=== PATIENT | female | born 1990 | race Hispanic/Latino ===

== ENCOUNTER 2020-10-28 17:43 | Emergency (ER) | payer OTHER ==
--- OUTSIDE RECORDS SUMMARY | 2020-10-28 17:45 | XMS REPORT | Continuity of Care Document ---
:1990 Author Organization [facility] t Address [address] [place] [address] Care Team Providers Name Role Phone Unavailable Unavailable Unavailable Payers Payer Name Policy Type Policy Number Effective Date Expiration Date S ource Problems This patient has no known problems. Allergies, Adverse Reactions, Alerts Allergy Allergy Status Severity Reaction(s) Onset Inactive Treating Comm ents Source Name Type Date Date Clinician No Known DA Active U 2017-0 [facility] 1-15 [facility] 00:00: e 00 [facility] Medications This patient has no known medications. Procedures This patient has no known procedures. Results Test Description Test Time Test Comments Results Result Comments Source COVID 19 INHOUSE AG 2020-10-14 17:38:00 Test Item Value Reference Range Interpretation Comme nts COVID 19 INHOUSE AG (test code = [id number]) NEGATIVE Novel Coronavirus 2019 [id number] 20:40:00 Test Item Value Reference Range Interpretation Comments Novel Coronavirus 2019 nCoV (test Negative Negative code = COVID19) Does patient have the clinical criteria consistent with COVID-19? YIs the patient going to be discharged home? YSTREPTOCOCCUS PCR [id number] 08:25:00 Test Item Value Reference Range Interpretation Comments STREPTOCOCCUS DYSGALACTIAE NEGATIVE FOR G/C NEGATIVE (test code = STREPGC) STREPA MOLECULAR (test NEGATIVE FOR GRP A NEGATIVE code = STREPAMOL)
[2020-10-28 18:34] LABS: Urine Blood 2+ (NEG); Urine Glucose NEGATIVE (NEG); Urine Protein TRACE (NEG); Urine Specific Gravity >1.030 (1.005-1.030)
--- NOTE | 2020-10-28 19:34 | EDPHYS ---
Physician Documentation [facility] Name: Martha García Age: 30 yrs Sex: Female : 1990 Arrival Date: 10/28/2020 Time: 17:50 Bed 28 Private MD: ED Physician Mikey Pop HPI: 10/28 19:35 This 30 yrs old Female presents to ER via Ambulatory with complaints of kb Vaginal Bleeding, + Preg <12wks. 19:35 The patient presents to the emergency department with vaginal bleeding, that is kb moderate. course: care: none, Leakage of Fluid: none appreciated, Ultrasound: the patient has not had an ultrasound, Risk/complications: no obvious risks or complications are appreciated. Previous pregnancies: in previous pregnancies patient has had. Associated signs and symptoms: Pertinent positives: vaginal bleeding. The patient has not experienced similar symptoms in the past. The patient has not recently seen a physician. Pt reports she took 2 tests a week ago and they were both positive. Today started having vaginal bleeding. This would be the time for her normal cycle so she isn't sure if that is all it is. . 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 - Social history:: Smoking status: . ROS: 19:35 Constitutional: Negative for fever, chills, and weight loss, Cardiovascular: Negative kb for chest pain, palpitations, and edema, Respiratory: Negative for shortness of breath, cough, wheezing, and pleuritic chest pain, Abdomen/GI: Negative for abdominal pain, nausea, vomiting, diarrhea, and constipation, Back: Negative for injury and pain, MS/Extremity: Negative for injury and deformity, Skin: Negative for injury, rash, and discoloration, Neuro: Negative for headache, weakness, numbness, tingling, and seizure. 19:35 : Positive for vaginal bleeding. Exam: 19:35 Constitutional: This is a well developed, well nourished patient who is awake, alert, kb and in no acute distress. Head/Face: Normocephalic, atraumatic. Chest/axilla: Normal chest wall appearance and motion. Nontender with no deformity. No lesions are appreciated. Cardiovascular: Regular rate and rhythm with a normal S1 and S2. No gallops, murmurs, or rubs. Normal PMI, no JVD. No pulse deficits. Respiratory: Lungs have equal breath sounds bilaterally, clear to auscultation and percussion. No rales, rhonchi or wheezes noted. No increased work of breathing, no retractions or nasal flaring. Abdomen/GI: Soft, non-tender, with normal bowel sounds. No distension or tympany. No guarding or rebound. No evidence of tenderness throughout. Skin: Warm, dry with normal turgor. Normal color with no rashes, no lesions, and no evidence of cellulitis. MS/ Extremity: Pulses equal, no cyanosis. Neurovascular intact. Full, normal range of motion. Neuro: Awake and alert, GCS 15, oriented to person, place, time, and situation. Cranial nerves II-XII grossly intact. Motor strength 5/5 in all extremities. Sensory grossly intact. Cerebellar exam normal. Normal gait. Vital Signs: 17:53 BP 140 / 93; Pulse 91; Resp 18; Temp 98(TE); Pulse Ox 100% on R/A; Weight 98.43 kg (R); tw2 Height 5 ft. 4 in. (162.56 cm); Pain 7/10; 17:53 Body Mass Index 37.25 (98.43 kg, 162.56 cm) tw2 MDM: 19:33 Patient medically screened. kb 19:35 Data reviewed: vital signs, nurses notes. Data interpreted: Pulse oximetry: on room air kb is 100 %. Interpretation: normal. Counseling: I had a detailed discussion with the patient and/or guardian regarding: the historical points, exam findings, and any diagnostic results supporting the discharge/admit diagnosis, lab results, the need for outpatient follow up, an OB/Gyne specialist, to return to the emergency department if symptoms worsen or persist or if there are any questions or concerns that arise at home. 10/28 18:22 Order name: Urine Dipstick--Ancillary (enter results); Complete Time: 18:49 bd 10/28 18:22 Order name: Urine --Ancillary (enter results); Complete Time: 18:49 bd 10/28 17:52 Order name: Urine Test (obtain specimen); Complete Time: 19:42 kb 10/28 17:52 Order name: Urine Dipstick-Ancillary (obtain specimen); Complete Time: 19:42 kb Administered Medications: No medications were administered Point of Care Testing: Urine : 19:42 hCG Reading: Negative; Control Reading: Negative; iw Disposition: 10/29 04:02 Co-signature as Attending Physician, Mikey Pop MD did not see or evaluate patient. ps1 Signature for administrative purposes. . Disposition: 10/28/20 19:33 Discharged to Home. Impression: Encounter for test. - Condition is Stable. - Medication Reconciliation Form, Thank You Letter, Antibiotic Education, Prescription Opioid Use form. - Follow up: Emergency Department; When: As needed; Reason: Worsening of condition. Follow up: Private Physician; When: 2 - 3 days; Reason: Recheck today's complaints, Continuance of care, Re-evaluation by your physician. Signatures: Dispatcher [employer] EDMS Anabella Almodovar, SPECIAL EVENTS COORDINATOR-C SPECIAL EVENTS COORDINATOR-CkLucina Moran RN RN iw Mary Cole RN RN tw2 Mikey Pop MD MD ps1 Corrections: (The following items were deleted from the chart) 10/28 19:41 19:33 10/28/2020 19:33 Discharged to Home. Impression: Encounter for test. iw Condition is Stable. Forms are Medication Reconciliation Form, Thank You Letter, Antibiotic Education, Prescription Opioid Use. Follow up: Emergency Department; When: As needed; Reason: Worsening of condition. Follow up: Private Physician; When: 2 - 3 days; Reason: Recheck today's complaints, Continuance of care, Re-evaluation by your physician. kb
--- NOTE | 2020-10-28 19:34 | ER ---
Nurse's Notes [facility] Name: Martha García Age: 30 yrs Sex: Female : 1990 Arrival Date: 10/28/2020 Time: 17:50 Bed 28 Private MD: Diagnosis: Encounter for test Presentation: 10/28 17:53 Chief complaint: Patient states: sep 29 was my last period, we took a home tw2 test and it was positive, so now i felt wet and there was blood, i stayed at work, i am having some cramping too, i dont know if it is my period or what. Coronavirus screen: At this time, the client does not indicate any symptoms associated with coronavirus-19. Ebola Screen: Patient denies travel to an Ebola-affected area in the 21 days before illness onset. Initial Sepsis Screen: Does the patient meet any 2 criteria? No. Patient's initial sepsis screen is negative. Does the patient have a suspected source of infection? No. Patient's initial sepsis screen is negative. Risk Assessment: Do you want to hurt yourself or someone else? Patient reports no desire to harm self or others. Onset of symptoms was October 28, 2020. 17:53 Method Of Arrival: Ambulatory tw2 17:53 Acuity: JOSSY 3 tw2 Triage Assessment: 17:53 General: Appears in no apparent distress. obese, Behavior is calm, cooperative, tw2 appropriate for age. Pain: Complains of pain in pelvis. GI: Reports cramping. : Reports vaginal bleeding that is bright red. 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 - Social history:: Smoking status: . Screenin:41 Abuse screen: Denies threats or abuse. Denies injuries from another. Nutritional iw screening: No deficits noted. Tuberculosis screening: No symptoms or risk factors identified. Fall Risk None identified. Assessment: 19:30 Obstetrical Assessment: General assessment: awake and alert. General: Appears in no iw apparent distress. comfortable. Pain: Denies pain. Neuro: Level of Consciousness is awake, alert, obeys commands, Oriented to person, place, time, situation, Moves all extremities. Full function. Cardiovascular: Patient's skin is warm and dry. Respiratory: Respiratory effort is even, unlabored, Respiratory pattern is regular, symmetrical. Derm: Skin is intact, is healthy with good turgor. Musculoskeletal: Range of motion: intact in all extremities. Vital Signs: 17:53 BP 140 / 93; Pulse 91; Resp 18; Temp 98(TE); Pulse Ox 100% on R/A; Weight 98.43 kg (R); tw2 Height 5 ft. 4 in. (162.56 cm); Pain 7/10; 17:53 Body Mass Index 37.25 (98.43 kg, 162.56 cm) tw2 Vitals: 19:41 Heart Tones N/A. iw ED Course: 17:50 Patient arrived in ED. mr 17:55 Triage completed. tw2 17:56 Arm band placed on. tw2 19:33 Anabella Almodovar FNP-C [facility]. kb 19:33 Mikey Pop MD is Attending Physician. kb 19:34 Farhan Ramos, ANDREAS is Primary Nurse. mg2 19:41 Patient has correct armband on for positive identification. iw 19:41 No provider procedures requiring assistance completed. Patient did not have IV access iw during this emergency room visit. Administered Medications: No medications were administered Point of Care Testing: Urine : 19:42 hCG Reading: Negative; Control Reading: Negative; iw Outcome: 19:33 Discharge ordered by . kb 19:41 Discharged to home ambulatory. iw 19:41 Condition: good 19:41 Discharge instructions given to patient, Instructed on discharge instructions, follow up and referral plans. Demonstrated understanding of instructions, follow-up care. 19:41 Patient left the ED. iw Signatures: Anabella Almodovar FNP-C FNP-Meño GodfreyTamara Lucina Wellington, RN RN iw Mary Cole RN RN tw2 Farhan Ramos RN RN mg2
[2020-10-28 19:59] VITALS: BP 140/93; TEMP 98; O2SAT 100
== END 2020-10-28 19:41 | disposition home or self-care (01) ==
LOC: ER 17:43
DX: Z32.02 Encounter for pregnancy test, result negative (principal); Z98.84 Bariatric surgery status
CPT/HCPCS: 81003; 81025; 99283

== ENCOUNTER 2021-01-25 21:19 | Emergency (ER) | payer OTHER ==
--- OUTSIDE RECORDS SUMMARY | 2021-01-25 21:22 | XMS REPORT | Continuity of Care Document ---
:1990 Author Organization [facility] t Address [address] [place] [address] Care Team Providers Name Role Phone Lolly Palacios Attending Clinician [phone] Payers Payer Name Policy Type Policy Number Effective Date Expiration Date S ource Problems This patient has no known problems. Allergies, Adverse Reactions, Alerts Allergy Allergy Status Severity Reaction(s) Onset Inactive Treating Comm ents Source Name Type Date Date Clinician No Known DA Active U 2017-0 [facility] 1[facility] e 00 [facility] Medications This patient has no known medications. Procedures This patient has no known procedures. Encounters Start End Encounter Admission Attending Care Care Encounter Source Date/Time Date/Time Type Type Clinicians Facility Department ID 2021-01-23 2021-01-23 Telephone BRENNAN Draper [id number] 00:00:00 00:00:00 Lolly Natarajan D[employer] SHEETER [id number] REGIONAL [id number] MATERNAL [id number] & CHILD [address] [place] [address] Results Test Description Test Time Test Comments Results Result Comments Source COVID 19 INHOUSE AG 2020-10-14 17:38:00 Test Item Value Reference Range Interpretation Comme nts COVID 19 INHOUSE AG (test code = [id number]) NEGATIVE Novel Coronavirus 2018 [id number] 20:40:00 Test Item Value Reference Range Interpretation Comments Novel Coronavirus 2019 nCoV (test Negative Negative code = COVID19) Does patient have the clinical criteria consistent with COVID-19? YIs the patient going to be discharged home? YSTREPTOCOCCUS PCR [id number] 08:25:00 Test Item Value Reference Range Interpretation Comments STREPTOCOCCUS DYSGALACTIAE NEGATIVE FOR G/C NEGATIVE (test code = STREPGC) STREPA MOLECULAR (test NEGATIVE FOR GRP A NEGATIVE code = STREPAMOL)
[2021-01-26 02:07] LABS: Urine Blood Negative (Negative); Urine Glucose Negative (Negative); Urine Protein Negative (Negative); Urine Specific Gravity >=1.030 (1.005-1.030)
[2021-01-26 02:35] LABS: Urine Specific Gravity/Preg >1.030 (1.005-1.030)
[2021-01-26 02:51] LABS: Absolute Lymphocytes (CBC) 2.6 K/uL (0.7-4.9); Basophils % 0.6 % (0-1.3); Hematocrit 31.8 % (36.0-45.0); Lymphocytes % 40.5 % (15.3-44.8); MPV 8.2 fL (7.6-11.3)
[2021-01-26 03:00] LABS: BUN Blood Urea Nitrogen 12 mg/dL (7-18); Bicarbonate 26 mmol/L (21-32); Glucose Level 80 mg/dL (74-106); Potassium 3.5 mmol/L (3.5-5.1); Sodium Level 142 mmol/L (136-145)
[2021-01-26 03:16] LABS: HCG, Quantitative 1256 mIU/mL (1-3)
--- NOTE | 2021-01-26 03:48 | EDPHYS ---
Physician Documentation [facility] Name: Martha García Age: 30 yrs Sex: Female : 1990 Arrival Date: 01/25/2021 Time: 21:22 Bed 8 Private MD: ED Physician Gabe Og HPI: 01/26 03:42 This 30 yrs old Female presents to ER via Ambulatory with complaints of mh7 Vaginal Bleeding, + Preg <12wks. 03:42 The patient presents to the emergency department with vaginal bleeding, that is mh7 moderate, with no clots. course: care: private OB physician, Leakage of Fluid: none appreciated, Ultrasound: the patient has not had an ultrasound, Risk/complications: no obvious risks or complications are appreciated. Previous pregnancies: in previous pregnancies patient has had. Associated signs and symptoms: Pertinent positives: vaginal bleeding, Pertinent negatives: abdominal pain, chest pain, diarrhea, dysuria, fever, frequency, nausea, ruptured membranes, seizure, shortness of breath, vaginal discharge, vomiting. 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 - Social history:: Smoking status: Patient denies any tobacco usage or history of. ROS: 01/26 03:42 Constitutional: Negative for fever, chills, and weight loss, Eyes: Negative for injury, mh7 pain, redness, and discharge, ENT: Negative for injury, pain, and discharge, Neck: Negative for injury, pain, and swelling, Cardiovascular: Negative for chest pain, palpitations, and edema, Respiratory: Negative for shortness of breath, cough, wheezing, and pleuritic chest pain, Abdomen/GI: Negative for abdominal pain, nausea, vomiting, diarrhea, and constipation, Back: Negative for injury and pain, MS/Extremity: Negative for injury and deformity, Skin: Negative for injury, rash, and discoloration, Neuro: Negative for headache, weakness, numbness, tingling, and seizure, Psych: Negative for depression, anxiety, suicide ideation, homicidal ideation, and hallucinations, Allergy/Immunology: Negative for hives, rash, and allergies, Endocrine: Negative for neck swelling, polydipsia, polyuria, polyphagia, and marked weight changes, Hematologic/Lymphatic: Negative for swollen nodes, abnormal bleeding, and unusual bruising. Exam: 03:42 Constitutional: This is a well developed, well nourished patient who is awake, alert, mh7 and in no acute distress. Head/Face: Normocephalic, atraumatic. Eyes: Pupils equal round and reactive to light, extra-ocular motions intact. Lids and lashes normal. Conjunctiva and sclera are non-icteric and not injected. Cornea within normal limits. Periorbital areas with no swelling, redness, or edema. Neck: Trachea midline, no thyromegaly or masses palpated, and no cervical lymphadenopathy. Supple, full range of motion without nuchal rigidity, or vertebral point tenderness. No Meningismus. Chest/axilla: Normal chest wall appearance and motion. Nontender with no deformity. No lesions are appreciated. Cardiovascular: Regular rate and rhythm with a normal S1 and S2. No gallops, murmurs, or rubs. Normal PMI, no JVD. No pulse deficits. Respiratory: Lungs have equal breath sounds bilaterally, clear to auscultation and percussion. No rales, rhonchi or wheezes noted. No increased work of breathing, no retractions or nasal flaring. Abdomen/GI: Soft, non-tender, with normal bowel sounds. No distension or tympany. No guarding or rebound. No evidence of tenderness throughout. Back: No spinal tenderness. No costovertebral tenderness. Full range of motion. Skin: Warm, dry with normal turgor. Normal color with no rashes, no lesions, and no evidence of cellulitis. MS/ Extremity: Pulses equal, no cyanosis. Neurovascular intact. Full, normal range of motion. Neuro: Awake and alert, GCS 15, oriented to person, place, time, and situation. Cranial nerves II-XII grossly intact. Motor strength 5/5 in all extremities. Sensory grossly intact. Cerebellar exam normal. Normal gait. Psych: Awake, alert, with orientation to person, place and time. Behavior, mood, and affect are within normal limits. 03:42 : Pelvic Exam: The exam is refused by the patient/guardian. The risks and consequences are understood by the patient. Vital Signs: 01/25 23:06 BP 104 / 70; Pulse 91; Resp 16 S; Temp 97.7(O); Pulse Ox 100% on R/A; Weight 91.17 kg bb (R); Height 5 ft. 3 in. (160.02 cm) (R); Pain 5/10; 01/26 03:57 BP 132 / 90; Pulse 88; Resp 18; Temp 98; Pulse Ox 100% on R/A; mg2 01/25 23:06 Body Mass Index 35.61 (91.17 kg, 160.02 cm) bb MDM: 03:46 Differential diagnosis: threatened Ab, inevitable Ab, complete Ab, retained Ab, septic mh7 Ab, missed Ab. Data reviewed: vital signs, nurses notes, lab test result(s), Beta HCG: CBC, electrolytes, urinalysis, radiologic studies, ultrasound. Data interpreted: Pulse oximetry: on room air is 100 %. Interpretation: normal. Counseling: I had a detailed discussion with the patient and/or guardian regarding: the historical points, exam findings, and any diagnostic results supporting the discharge/admit diagnosis, lab results, radiology results, the need for outpatient follow up, an OB/Gyne specialist. Response to treatment: the patient's symptoms have markedly improved after treatment. 03:48 Patient medically screened. 7 01/26 01:52 Order name: Basic Metabolic Panel; Complete Time: 03: mg2 01/26 01:52 Order name: CBC with Diff; Complete Time: 03: mg2 01/26 01:52 Order name: Beta hcg; Complete Time: 03: mg2 01/26 02:07 Order name: Urine Dipstick-Ancillary EDMS 01/26 02:28 Order name: Urine --Ancillary (enter results); Complete Time: 03: tt3 01/26 01:52 Order name: IV Saline Lock; Complete Time: 02: mg2 01/26 01:52 Order name: Labs collected and sent; Complete Time: 02: mg2 01/26 01:52 Order name: NPO; Complete Time: 02: mg2 01/26 01:52 Order name: Urine Dipstick-Ancillary (obtain specimen); Complete Time: 02:08 mg2 01/26 02:09 Order name: Transvaginal OB US mg2 Administered Medications: No medications were administered Disposition: 01/26/21 03:48 Discharged to Home. Impression: Threatened . - Condition is Stable. - Discharge Instructions: Threatened Miscarriage, Qggy-oh-Ieza. - Medication Reconciliation Form, Thank You Letter, Antibiotic Education, Prescription Opioid Use form. - Follow up: Private Physician; When: 1 - 2 days; Reason: Worsening of condition, Recheck today's complaints, Continuance of care, Re-evaluation by your physician. - Problem is an ongoing problem. - Symptoms have improved. Signatures: Dispatcher [employer] EDMS Barbara Ware RN RN bb Farhan Ramos RN RN mg2 Gabe Og MD MD mh7 Corrections: (The following items were deleted from the chart) 03:58 03:48 01/26/2021 03:48 Discharged to Home. Impression: Threatened . Condition mg2 is Stable. Forms are Medication Reconciliation Form, Thank You Letter, Antibiotic Education, Prescription Opioid Use. Follow up: Private Physician; When: 1 - 2 days; Reason: Worsening of condition, Recheck today's complaints, Continuance of care, Re-evaluation by your physician. Problem is an ongoing problem. Symptoms have improved. mh7
--- NOTE | 2021-01-26 03:48 | ER ---
Nurse's Notes [facility] Name: Martha García Age: 30 yrs Sex: Female : 1990 Arrival Date: 01/25/2021 Time: 21:22 Bed 8 Private MD: Diagnosis: Threatened Presentation: 01/25 23:06 Chief complaint: Patient states: she is having vaginal bleeding and abdominal cramping bb she is 5 weeks . Coronavirus screen: At this time, the client does not indicate any symptoms associated with coronavirus-19. Ebola Screen: No symptoms or risks identified at this time. Initial Sepsis Screen: Does the patient meet any 2 criteria? No. Patient's initial sepsis screen is negative. Does the patient have a suspected source of infection? No. Patient's initial sepsis screen is negative. Risk Assessment: Do you want to hurt yourself or someone else? Patient reports no desire to harm self or others. Onset of symptoms is unknown. 23:06 Method Of Arrival: Ambulatory bb 23:06 Acuity: JOSSY 3 bb Triage Assessment: 23:07 General: Appears in no apparent distress. Behavior is calm, cooperative. Pain: bb Complains of pain in abdomen Pain currently is 5 out of 10 on a pain scale. Cardiovascular: No deficits noted. Respiratory: Respiratory effort is even, unlabored, Respiratory pattern is regular. : Reports vaginal bleeding that is. Derm: Skin is pink, warm \T\ dry. Musculoskeletal: Circulation, motion, and sensation intact. 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 - Social history:: Smoking status: Patient denies any tobacco usage or history of. Screenin/25 02:10 Abuse screen: Denies threats or abuse. Denies injuries from another. Nutritional mg2 screening: No deficits noted. Tuberculosis screening: No symptoms or risk factors identified. Fall Risk IV access (20 points). Assessment: 02:09 General: Appears in no apparent distress. comfortable, Behavior is calm, cooperative. mg2 Pain: Complains of pain in abdomen. Neuro: Level of Consciousness is awake, alert, obeys commands, Oriented to person, place, time, situation. Cardiovascular: Capillary refill < 3 seconds Patient's skin is warm and dry. Respiratory: Airway is patent Respiratory effort is even, unlabored, Respiratory pattern is regular, symmetrical. GI: No signs and/or symptoms were reported involving the gastrointestinal system. : Reports vaginal bleeding that is. EENT: No signs and/or symptoms were reported regarding the EENT system. 03:13 Reassessment: ultrasound at bedside. mg2 Vital Signs: 01/25 23:06 BP 104 / 70; Pulse 91; Resp 16 S; Temp 97.7(O); Pulse Ox 100% on R/A; Weight 91.17 kg bb (R); Height 5 ft. 3 in. (160.02 cm) (R); Pain 5/10; 01/26 03:57 BP 132 / 90; Pulse 88; Resp 18; Temp 98; Pulse Ox 100% on R/A; mg2 01/25 23:06 Body Mass Index 35.61 (91.17 kg, 160.02 cm) bb ED Course: 01/25 21:22 Patient arrived in ED. ag3 23:07 Triage completed. bb 23:07 Arm band placed on Patient placed in waiting room, Patient notified of wait time. bb 01/26 01:51 Farhan Ramos, RN is Primary Nurse. mg2 02:10 Patient has correct armband on for positive identification. mg2 02:10 No provider procedures requiring assistance completed. Inserted saline lock: 22 gauge mg2 in right hand, using aseptic technique. Blood collected. 02:30 Gabe Og MD is Attending Physician. 7 03:58 IV discontinued, intact, bleeding controlled, No redness/swelling at site. Pressure mg2 dressing applied. 04:02 Transvaginal OB US In Process Unspecified. EDMS 04:09 Ultrasound completed. Patient tolerated well. Notified ED Physician efren. sg3 Administered Medications: No medications were administered Outcome: 03:48 Discharge ordered by . mh7 03:58 Discharged to home ambulatory, with family. mg2 03:58 Condition: stable 03:58 Discharge instructions given to patient, family, Instructed on discharge instructions, follow up and referral plans. Demonstrated understanding of instructions, follow-up care. 03:58 Patient left the ED. mg2 Signatures: Dispatcher [employer] Barbara Damian RN RN Isabel Hensley 3 Farhan Ramos RN RN mg2 Kayla Corbett 3 Gabe Og MD MD mh7
[2021-01-26 04:03] VITALS: O2SAT 100
[2021-01-26 04:05] VITALS: BP 132/90; TEMP 98
--- NOTE | 2021-01-26 11:19 | RAD REPORT ---
EXAM DESCRIPTION: US - Transvaginal OB - 01/26/2021 4:02 am CLINICAL HISTORY: with vaginal bleeding and abdominal pain COMPARISON: None. FINDINGS: The uterus measures 10 x 5 x 6 centimeters. . A gestational sac is present within the end ometrium measuring 3.6 x 3.2 x 3.4 centimeters. Debris is present within the endometrium. A [address] echogenic structure is present within the endometrium. Cardiac activity is not visualized. Debris is present within the gestational sac. This is equivocal for a pole. The right ovary is normal in size and echotexture. The left ovary was not seen secondary to overlying bowel gas. The right and left adnexal unremarkable No significant free fluid IMPRESSION: These findings likely represent a failed . An early in which cardiac activity is not identified is doubtful. It is recommended that the patient have serial beta HCG level s and a follow up ultrasound in 1 week for re-evaluation
== END 2021-01-26 03:58 | disposition home or self-care (01) ==
LOC: ER 21:19
DX: O20.0 Threatened abortion (principal); Z3A.01 Less than 8 weeks gestation of pregnancy
CPT/HCPCS: 36415; 76817; 80048; 81003; 81025; 84702; 85025; 99283